=== PATIENT | female | born 1955 | race Two or more races ===

== ENCOUNTER 2017-05-19 08:00 | Inpatient (IN) | payer MEDICARE, OTHER ==
[2017-05-19] VITALS (12 sets, daily range): BP systolic 128–180; BP diastolic 65–90
[~2017-05-19] VITALS: Ht 157.5 cm; Wt 59.0 kg
--- NOTE | 2017-05-19 07:31 | Anethesia Preoperative Eval ---
Anesthesia Pre-op PMH/ROS General Date of Evaluation: May 19, 2017 Time of Evaluation: 07:30 Anesthesiologist: inocencio ASA Score: ASA 3 Mallampati Score Class I : Soft palate, uvula, fauces, pillars visible Class II: Soft palate, uvula, fauces visible Class III: Soft palate, base of uvula visible Class IV: Only hard plate visible Mallampati Classification: Class II Surgeon: nnamdi Diagnosis: right renal mass Surgical Procedure: nephrectomy, laparoscopic partial v radical Anesthesia History: none Social History: smoking Family History: no anesthesia problems Allergies: Coded Allergies: CIPROFLOXACIN (Verified Allergy, Severe, SWELLING, 05/18/17) LEVOFLOXACIN (Verified Allergy, Severe, 05/19/17) PERIPHERAL NEUROPATHY PSEUDOEPHEDRINE (Verified Allergy, Severe, SWELLING, RASH, SKIN PEELING, 05/19/17) Uncoded Allergies: camtrax (Allergy, Intermediate, rash , 05/19/17) Medications: see eMAR Past Medical History Cardiovascular: Reports: HTN Pulmonary: Reports: COPD Gastrointestinal/Genitourinary: Reports: GERD, other - gib PSxH Narrative: jeet, bladder suspension, d&c, lap band placement and removal Anesthesia Pre-op Phys. Exam Physician Exam Last Vital Signs Date Time Temp Pulse Resp B/P (MAP) Pulse Ox O2 Delivery O2 Flow Rate FiO2 05/19/17 08:43 97.7 61 16 159/89 99 Room Air Constitutional: NAD Neurologic: CN 2-12 intact Cardiovascular: RRR Respiratory: CTA Gastrointestinal: S/NT/ND Airway Exam Mallampati Score: Class II MO: full Neck: supple TMD: 2fb ROM: full Anesthesia Pre-op A/P Labs see chart Studies Pre-op Studies: EKG - sinus rhythm, CXR - no acute process, stable left lung nodule Risk Assessment & Plan Assessment: asa3 Plan: general Status Change Before Surgery: No Pre-Antibiotics Drug: ancef 1gm Given Within 1 Hr of Incision: Yes DIANA SMYTH May 19, 2017 07:31
[2017-05-19] MEDS ORDERED: LISINOPRIL10 MG ORAL (08:57)
[2017-05-19] MEDS ORDERED: TRAMADOL HCL100 M2 ORAL (08:57)
[2017-05-19] MEDS ORDERED: MYRBETRIQ25 MG PO (08:57)
--- NOTE | 2017-05-19 10:10 | Pre-Procedure Note/Attestation ---
Pre-Procedure Note/Attestation Complete Prior to Procedure Planned Procedure: right Procedure Narrative: Right Laparoscopic Radical vs partial Nephrectomy Indications for Procedure Pre-Operative Diagnosis: right renal mass Attestation I attest that I discussed the nature of the procedure; its benefits; risks and complications; and alternatives (and the risks and benefits of such alternatives ), prior to the procedure, with the patient (or the patient's legal sales representatives). I attest that, if there was a reasonable possibility of needing a blood transfusion, the patient (or the patient's legal sales representatives) was given the [facility] standardized written summary, pursuant to the [place] Blood Safety Act ([place] Health and Safety Code # 1645, as amended). I attest that I re-evaluated the patient just prior to the surgery and that there has been no change in the patient's H&P, except as documented below: Pierre Archer MD May 19, 2017 10:10
[2017-05-19] MEDS ORDERED: Neostigmine 1mg/ml 10ml Inj ONE (10:30)
[2017-05-19] MEDS ORDERED: LR 1000ml ONE (10:30)
[2017-05-19] MEDS ORDERED: fentaNYL 100 mcg/2 mL IV ONE ×2 (10:30→12:21)
[2017-05-19] MEDS ORDERED: Sterile Water Irrig 1000ml IRRIG ONE (10:30)
[2017-05-19] MEDS ORDERED: NS Irrig 1000ml ONE (10:30)
[2017-05-19] MEDS ORDERED: Propofol 200mg/20ml IV ONE (10:30)
[2017-05-19] MEDS ORDERED: Lidocaine 1% MPF 10mg/ml 5ml ONE (10:30)
[2017-05-19] MEDS ORDERED: Glycopyrrolate 0.2mg/ml 1ml Vial ONE (10:30)
[2017-05-19] MEDS ORDERED: Midazolam 2mg/2ml Inj ONE (10:30)
[2017-05-19] MEDS ORDERED: Bupivacaine 0.5% Inj 30 ml vial INJ ONE (10:35)
[2017-05-19] MEDS ORDERED: Lacri-Lube Opth Oint 3.5gm ONE (10:35)
[2017-05-19] MEDS ORDERED: NS Irrig 1000ml IRRIG ONE (11:07)
[2017-05-19] MEDS ORDERED: Surgicel 4in x 8in TOPIC ONE (11:33)
--- NOTE | 2017-05-19 11:53 | Brief Operative Note ---
Immediate Post Operative Note Operative Note Pre-op Diagnosis: right renal mass Procedure: Laparoscopic partial nephrectomy right Post-op Diagnosis: same Surgeon: Jean Marie Archer Process Area Supervisor: Caleb Mayes Anesthesia: general Specimen: yes Complications: none Condition: stable Fluids: 500 Estimated Blood Loss: minimal Implant(s) used?: No Pierre Archer MD May 19, 2017 11:53
[2017-05-19] MEDS ORDERED: HYDROmorphone 1mg/ml Carpuject IVP PRN (12:00)
[2017-05-19] MEDS ORDERED: LR 1000ml 1,000 ML IVLG SCH (12:17)
[2017-05-19] MEDS: fentaNYL 100 mcg/2 mL IV PRN ×4 (12:27→13:26)
[2017-05-19] MEDS ORDERED: DiphenhydrAMINE 50mg/ml Inj IVP PRN (12:30)
[2017-05-19] MEDS ORDERED: Atropine Inj 1mg/10ml Syr IV PRN (12:30)
[2017-05-19] MEDS ORDERED: Midazolam 2mg/2ml Inj IVP PRN (12:30)
[2017-05-19 12:55] LABS: MEAN CORPUSCULAR HEMOGLOBIN 25.9 PG (27.0-31.0); MEAN CORPUSCULAR HGB CONC 31.4 G/DL (32.0-36.0); MEAN CORPUSCULAR VOLUME 83 FL (80-99); MEAN PLATELET VOLUME 7.5 FL (6.5-10.1); PLATELET COUNT 447 K/UL (150-450); RED BLOOD COUNT 5.14 M/UL (4.20-5.40); RED CELL DISTRIBUTION WIDTH 14.4 % (11.6-14.8); WHITE BLOOD COUNT 20.8 K/UL (4.8-10.8)
[2017-05-19 13:09] LABS: ANION GAP 5 mmol/L (5-15); BAND NEUTROPHILS % (MANUAL) 0 % (0-8); BASOPHILS % (MANUAL) 0 % (0-2); CALCIUM 8.6 MG/DL (8.5-10.1); CARBON DIOXIDE 28 MMOL/L (21-32); CHLORIDE 106 MMOL/L (98-107); CREATININE 0.7 MG/DL (0.55-1.30); EOSINOPHILS % (MANUAL) 2 % (0-3); GLOMERULAR FILTRATION RATE > 60 mL/min (>60); LYMPHOCYTES % (MANUAL) 18 % (20-45); NEUTROPHILS % (MANUAL) 75 % (45-75); PLATELET ESTIMATE ADEQUATE; PLATELET MORPHOLOGY NORMAL; POTASSIUM 4.7 MMOL/L (3.5-5.1); SODIUM 139 MMOL/L (136-145); TOTAL CELLS COUNTED 100
--- NOTE | 2017-05-19 13:14 | Immediate Post-Op Evaluation ---
Immediate Post-Op Evalulation Immediate Post-Op Evalulation Procedure: removal right renal mass laparoscopic Date of Evaluation: May 19, 2017 Time of Evaluation: 12:14 IV Fluids: 1500ml lr Blood Products: none Estimated Blood Loss: negligible Urinary Output: 300ml Blood Pressure Systolic: 155 Blood Pressure Diastolic: 73 Pulse Rate: 54 Respiratory Rate: 20 O2 Sat by Pulse Oximetry: 100 Temperature (Fahrenheit): 97.4 Pain Score (1-10): 0 Nausea: No Vomiting: No Complications none Patient Status: awake, reacts, patent, extubated Hydration Status: adequate Drug: ancef 1 gram Given Within 1 Hr of Incision: Yes DIANA SMYTH May 19, 2017 13:14
[2017-05-19] MEDS: D5 1/2NS w/KCl 20mEq 1,000 ML IV SCH (15:10)
[2017-05-19] MEDS: Hydromorphone 0.5mg/0.5ml inj IVP PRN (15:11)
--- NOTE | 2017-05-19 15:13 | History and Physical ---
History of Present Illness General Date patient seen: May 19, 2017 Present Illness HPI 52 year old female with hx of HTN, gastric lap band, depression, renal cell cancer admitted for nephrectomy. pt is admitted to floor for post op care. Allergies: Coded Allergies: CIPROFLOXACIN (Verified Allergy, Severe, SWELLING, 05/18/17) LEVOFLOXACIN (Verified Allergy, Severe, 05/19/17) PERIPHERAL NEUROPATHY PSEUDOEPHEDRINE (Verified Allergy, Severe, SWELLING, RASH, SKIN PEELING, 05/19/17) Uncoded Allergies: camtrax (Allergy, Intermediate, rash , 05/19/17) Medication History Scheduled Lisinopril* (Lisinopril*), 10 MG ORAL DAILY, (Reported) Mirabegron (Myrbetriq), 25 MG PO DAILY, (Reported) Scheduled PRN Tramadol Hcl (Tramadol Hcl), 50 MG ORAL TID PRN for For Pain, (Reported) Patient History Healthcare decision maker SELF Resuscitation status Full Code Advanced Directive on File Past Medical/Surgical History Past Medical/Surgical History: (1) Depression Review of Systems All Other Systems: negative except mentioned in HPI Physical Exam General Appearance: WD/WN, no apparent distress Lines, tubes and drains: peripheral, central line HEENT: normocephalic, anicteric Neck: non-tender, normal alignment Respiratory/Chest: chest wall non-tender, normal breath sounds Breasts: no masses Cardiovascular/Chest: normal rate, regular rhythm Last 24 Hour Vital Signs Date Time Temp Pulse Resp B/P (MAP) Pulse Ox O2 Delivery O2 Flow Rate FiO2 05/19/17 13:32 70 20 153/73 98 Nasal Cannula 3.0 05/19/17 13:27 97.4 05/19/17 13:26 65 20 156/85 98 Nasal Cannula 3.0 05/19/17 13:19 180/90 05/19/17 13:15 62 20 180/90 98 Nasal Cannula 3.0 05/19/17 13:14 54 20 100 05/19/17 13:00 60 20 168/82 98 Nasal Cannula 3.0 05/19/17 12:44 51 20 162/68 98 Nasal Cannula 3.0 05/19/17 12:27 52 20 155/65 98 Simple Mask 8.0 05/19/17 12:12 52 20 155/65 98 Simple Mask 8.0 05/19/17 12:07 54 20 146/72 98 Simple Mask 8.0 05/19/17 12:02 97.4 56 20 155/73 98 Simple Mask 8.0 05/19/17 08:43 97.7 61 16 159/89 99 Room Air Intake and Output 05/19/17 05/20/17 19:00 07:00 Intake Total 800 ml Output Total 300 ml Balance 500 ml Intake IV Total 800 ml Output Urine Total 300 ml # Voids 1 Laboratory Tests Test 05/19/17 12:30 White Blood Count 20.8 K/UL (4.8-10.8) H Red Blood Count 5.14 M/UL (4.20-5.40) Hemoglobin 13.3 G/DL (12.0-16.0) Hematocrit 42.5 % (37.0-47.0) Mean Corpuscular Volume 83 FL (80-99) Mean Corpuscular Hemoglobin 25.9 PG (27.0-31.0) L Mean Corpuscular Hemoglobin Concent 31.4 G/DL (32.0-36.0) L Red Cell Distribution Width 14.4 % (11.6-14.8) Platelet Count 447 K/UL (150-450) Mean Platelet Volume 7.5 FL (6.5-10.1) Neutrophils (%) (Auto) % (45.0-75.0) Lymphocytes (%) (Auto) % (20.0-45.0) Monocytes (%) (Auto) % (1.0-10.0) Eosinophils (%) (Auto) % (0.0-3.0) Basophils (%) (Auto) % (0.0-2.0) Differential Total Cells Counted 100 Neutrophils % (Manual) 75 % (45-75) Lymphocytes % (Manual) 18 % (20-45) L Monocytes % (Manual) 5 % (1-10) Eosinophils % (Manual) 2 % (0-3) Basophils % (Manual) 0 % (0-2) Band Neutrophils 0 % (0-8) Platelet Estimate Adequate Platelet Morphology Normal Red Blood Cell Morphology Normal Sodium Level 139 MMOL/L (136-145) Potassium Level 4.7 MMOL/L (3.5-5.1) Chloride Level 106 MMOL/L (98-107) Carbon Dioxide Level 28 MMOL/L (21-32) Anion Gap 5 mmol/L (5-15) Blood Urea Nitrogen 17 mg/dL (7-18) Creatinine 0.7 MG/DL (0.55-1.30) Estimat Glomerular Filtration Rate > 60 mL/min (>60) Glucose Level 101 MG/DL (74-106) Calcium Level 8.6 MG/DL (8.5-10.1) Height (Feet): 5 Height (Inches): 2.00 Weight (Pounds): 130 Medications Current Medications Medications (Trade) Dose Ordered Sig/Sunny Route PRN Reason Start Time Stop Time Status Last Admin Dose Admin Acetaminophen (Tylenol) 650 mg Q4H PRN ORAL FEVER 05/19/17 12:00 06/18/17 11:59 Acetaminophen (Tylenol) 650 mg Q6H PRN ORAL Mild Pain (Pain Scale 1-3) 05/19/17 12:00 06/18/17 11:59 Acetaminophen/ Hydrocodone Bitart ([place] 5/325) 1 tab Q4H PRN ORAL Moderate Pain (Pain Scale 4-6) 05/19/17 12:00 05/26/17 11:59 Al Hydroxide/Mg Hydroxide (Mylanta) 15 ml Q1H PRN ORAL gi upset 05/19/17 12:30 05/19/17 18:00 Atropine Sulfate (Atropine) 0.5 mg Q5M PRN IV BRADYCARDIA 05/19/17 12:30 05/19/17 18:00 Cefazolin Sodium 1 gm/Dextrose 55 ml @ 110 mls/hr Q8H IV 05/19/17 15:30 05/19/17 23:59 Dextrose/ Electrolytes 1,000 ml @ 100 mls/hr Q10H IV 05/19/17 15:00 06/18/17 14:59 Diphenhydramine HCl (Benadryl) 25 mg Q15M PRN IVP Itching 05/19/17 12:30 05/19/17 18:00 05/19/17 13:03 Docusate Sodium (Colace) 100 mg TWICE A DAY ORAL 05/19/17 18:00 06/18/17 17:59 Fentanyl Citrate (Sublimaze 100 mcg/2 mL) 25 mcg Q10M PRN IV Moderate Pain (Pain Scale 4-6) 05/19/17 12:30 05/19/17 18:00 05/19/17 13:26 Hydralazine HCl (Apresoline) 5 mg Q30M PRN IV SBP>160/DBP>90 05/19/17 12:30 05/19/17 18:00 05/19/17 13:19 Hydromorphone HCl (Dilaudid) 1 mg Q3H PRN IVP pain score 4-6 05/19/17 15:00 05/26/17 14:59 Lactated Ringer's 1,000 ml @ 10 mls/hr Q24H IVLG 05/19/17 12:17 05/19/17 18:00 Midazolam HCl (Versed 2mg/2ml vial) 1 mg Q15M PRN IVP For Anxiety 05/19/17 12:30 05/19/17 18:00 Ondansetron HCl (Zofran) 4 mg Q1H PRN IVP Nausea & Vomiting 05/19/17 12:30 05/19/17 16:00 Ondansetron HCl (Zofran) 4 mg Q6H PRN IVP Nausea & Vomiting 05/19/17 12:00 06/18/17 11:59 Assessment/Plan Problem List: (1) S/p nephrectomy ICD Codes: Z90.5 - Acquired absence of kidney SNOMED: 83268333, 782832560 (2) Depression ICD Codes: F32.9 - Major depressive disorder, single episode, unspecified SNOMED: 26331808 (3) Leukocytosis ICD Codes: D72.829 - Elevated white blood cell count, unspecified SNOMED: 504091684, 771492540 Assessment/Plan npo iv fluids check electrolytes check wbc VIKASH WOODALL May 19, 2017 15:13
[2017-05-19] MEDS: ceFAZolin sod 1 GM in D5W 55 ML IV SCH ×2 (15:58→23:34)
--- NOTE | 2017-05-19 17:30 | Operative Note - Dictated ---
DATE OF OPERATION: 05/19/2017 PREOPERATIVE DIAGNOSIS: Right renal mass. POSTOPERATIVE DIAGNOSIS: Right renal mass. OPERATION: Laparoscopic partial nephrectomy on the right side. SURGEON: Pierre Archer M.D. BILLING SERVICES MANAGER: Caleb Mayes M.D. FINDINGS: Right renal mass. INDICATIONS FOR SURGERY: The patient incidental right renal mass found on CT scan in September. Treatment options were explained to her in great length including all potential complications. She signed a consent. DESCRIPTION OF PROCEDURE: The patient was brought to the operating room, placed in right lateral decubitus position, prepped and draped in standard fashion. Under general anesthesia, hand port was placed at the McBurney point, incision approximately 7 cm and two additional 12 mm trocars in the standard position. Dr. Mayes started surgery with mobilizing multiple adhesions from previous Lap-Band surgery mobilizing the liver after he completed his procedure. Gerota fascia was opened and tumor was seen on the lateral surface of the right kidney. Circular incision with electrocautery was made approximately 1 cm margins from the tumor and tumor was resected for pathologic examination. Using FloSeal and Surgicel, bleeding stopped and normal recurrent bleeding occurred including electrocautery. was placed in normal position as well as the was repositioned back into the normal position. The trocars were removed. Sponge and all the instruments were removed from the patient. Sponge count and instrument count was correct. Wound was closed in a running layer with 0 Vicryl suture for the external oblique aponeurosis and then the subcuticular closure for the skin and kam. The patient tolerated procedure well. No evidence of complications. Pierre Archer M.D. DR: Leigh Ann JOB#: [id number] CC:
[2017-05-19] MEDS: Docusate 100mg cap ORAL SCH (18:00)
[2017-05-19] MEDS: Norco 5mg/325mg tab ORAL PRN (20:30)
[2017-05-20] VITALS: BP 104/72
[2017-05-20] MEDS: D5 1/2NS w/KCl 20mEq 1,000 ML IV SCH ×3 (01:20→21:00)
[2017-05-20 04:00] VITALS: BP 141/74
--- NOTE | 2017-05-20 05:00 | Operative Note - Dictated ---
OPERATING SURGEON: Caleb Mayes M.D. DRY CELL AND BATTERY ASSEMBLER: Pierre Archre M.D. ANESTHESIA: General endotracheal. PREOPERATIVE DIAGNOSIS: Renal cancer. POSTOPERATIVE DIAGNOSIS: 1. Right renal cancer. 2. Intraabdominal adhesions, status post laparoscopic adjustable gastric banding. PROCEDURE PERFORMED: Laparoscopic lysis of adhesions. BACKGROUND: The patient is a 61-year-old female with a right renal mass, most probably renal cell carcinoma. He was taken to operating room for laparoscopic hand-assisted right nephrectomy. The patient had a history of laparoscopic adjustable gastric banding for morbid obesity with subsequent band removal, and given the above-mentioned history, I was requested by Dr. Pierre Archer to assist in entering the abdominal cavity to avoid injury to internal organs since my primary speciality is bariatric surgery. INTRAOPERATIVE FINDINGS: Adhesions in the right upper quadrant from the previous surgeries. PROCEDURE IN DETAIL: The patient was placed in a left lateral decubitus position. The abdomen was prepped and draped in the usual sterile fashion. The procedure was started by making an incision in the right lower quadrant through the skin in a standard oblique fashion. The muscle was bluntly split and the abdomen was entered and hand port healthcare administrative assistant device was placed. After that, two additional ports 10 mm Optiview trocars were placed in the right abdomen. After that, using a 30-degree scope and scissors, electrocautery was needed, the adhesions in the omentum and throughout the abdominal wall were taken down taking care to avoid injury to small bowel. The adhesions covered the entire right upper quadrant which precluded safe access to the right kidney. After the omentum was dissected off the anterior abdominal wall, the hepatic flexure was mobilized and taken down to facilitate access to the right kidney. After that, the procedure was taken over by Dr. Pierre Archer and he will dictate his report separately. Caleb Mayes M.D. DR: Fauzia JOB#: [id number] CC: ALE
[2017-05-20] MEDS: Norco 5mg/325mg tab ORAL PRN ×3 (05:20→21:15)
[2017-05-20 07:57] LABS: BASOPHILS % (AUTO) 0.5 % (0.0-2.0); LYMPHOCYTES % (AUTO) 14.4 % (20.0-45.0); MAGNESIUM 2.1 MG/DL (1.8-2.4); MEAN CORPUSCULAR HEMOGLOBIN 25.6 PG (27.0-31.0); MEAN CORPUSCULAR HGB CONC 31.3 G/DL (32.0-36.0); MEAN CORPUSCULAR VOLUME 82 FL (80-99); MEAN PLATELET VOLUME 7.7 FL (6.5-10.1); MONOCYTES % (AUTO) 8.7 % (1.0-10.0); NEUTROPHILS % (AUTO) 72.4 % (45.0-75.0); PHOSPHORUS 3.5 MG/DL (2.5-4.9); PLATELET COUNT 378 K/UL (150-450); RED BLOOD COUNT 4.76 M/UL (4.20-5.40); RED CELL DISTRIBUTION WIDTH 14.4 % (11.6-14.8); WHITE BLOOD COUNT 10.7 K/UL (4.8-10.8)
[2017-05-20 08:01] LABS: ALANINE AMINOTRANSFERASE 12 U/L (12-78); ALBUMIN/GLOBULIN RATIO 0.7 (1.0-2.7); ANION GAP 7 mmol/L (5-15); ASPARTATE AMINO TRANSFERASE 16 U/L (15-37); CALCIUM 8.2 MG/DL (8.5-10.1); CARBON DIOXIDE 28 MMOL/L (21-32); CHLORIDE 106 MMOL/L (98-107); CREATININE 0.7 MG/DL (0.55-1.30); GLOMERULAR FILTRATION RATE > 60 mL/min (>60); POTASSIUM 4.3 MMOL/L (3.5-5.1); SODIUM 140 MMOL/L (136-145); TOTAL PROTEIN 5.9 G/DL (6.4-8.2)
[2017-05-20] MEDS: Docusate 100mg cap ORAL SCH ×2 (09:00→18:00)
[2017-05-20 09:09] VITALS: BP 148/73
[2017-05-20] MEDS: Lisinopril 10mg tab ORAL SCH (09:09)
[2017-05-20] MEDS: Hydromorphone 0.5mg/0.5ml inj IVP PRN (11:24)
[2017-05-20 11:54] VITALS: BP 107/61
--- NOTE | 2017-05-20 12:36 | 48 Hour Post Anesthesia Eval ---
Post Anesthesia Evaluation Procedure: removal right renal mass laparoscopic Date of Evaluation: May 20, 2017 Time of Evaluation: 10:20 Blood Pressure Systolic: 108 0: 65 Pulse Rate: 76 Respiratory Rate: 20 Temperature (Fahrenheit): 97.6 O2 Sat by Pulse Oximetry: 98 Airway: patent Nausea: No Vomiting: No Hydration Status: adequate Cardiopulmonary Status: stable Mental Status/LOC: patient returned to baseline Follow-up Care/Observations: n/a Post-Anesthesia Complications: none Follow-up care needed: N/A GERALD VALADEZ M.D. May 20, 2017 12:36
--- NOTE | 2017-05-20 14:41 | Pulmonology Progress Note ---
Assessment/Plan Problems: (1) S/p nephrectomy (2) Depression (3) Leukocytosis Assessment/Plan improving pain is better controlled advance diet mobilize dc home in am if ok with Surgeon Subjective ROS Limited/Unobtainable: No Constitutional: Reports: no symptoms HEENT: Repors: no symptoms Respiratory: Reports: no symptoms Allergies: Coded Allergies: CIPROFLOXACIN (Verified Allergy, Severe, SWELLING, 05/18/17) LEVOFLOXACIN (Verified Allergy, Severe, 05/19/17) PERIPHERAL NEUROPATHY PSEUDOEPHEDRINE (Verified Allergy, Severe, SWELLING, RASH, SKIN PEELING, 05/19/17) Uncoded Allergies: camtrax (Allergy, Intermediate, rash , 05/19/17) Objective Last 24 Hour Vital Signs Date Time Temp Pulse Resp B/P (MAP) Pulse Ox O2 Delivery O2 Flow Rate FiO2 05/20/17 12:36 76 20 98 05/20/17 11:54 98.2 67 19 107/61 94 05/20/17 09:09 148/73 05/20/17 09:09 97.9 79 20 148/73 94 05/20/17 04:00 98.4 69 18 141/74 95 Room Air 05/20/17 00:00 97.6 72 16 104/72 98 Nasal Cannula 3.0 05/19/17 20:00 97.5 78 16 129/74 98 Nasal Cannula 3.0 05/19/17 16:00 97.8 78 18 128/67 100 Nasal Cannula General Appearance: WD/WN HEENT: normocephalic, atraumatic Respiratory/Chest: chest wall non-tender, lungs clear Abdomen: normal bowel sounds, soft, non tender Genitourinary: normal external genitalia Extremities: no clubbing Skin: no lesions Laboratory Tests 05/20/17 07:00: White Blood Count 10.7, Red Blood Count 4.76, Hemoglobin 12.2, Hematocrit 38.8, Mean Corpuscular Volume 82, Mean Corpuscular Hemoglobin 25.6L, Mean Corpuscular Hemoglobin Concent 31.3L, Red Cell Distribution Width 14.4, Platelet Count 378, Mean Platelet Volume 7.7, Neutrophils (%) (Auto) 72.4, Lymphocytes (%) (Auto) 14.4L, Monocytes (%) (Auto) 8.7, Eosinophils (%) (Auto) 4.0H, Basophils (%) ( Auto) 0.5, Sodium Level 140, Potassium Level 4.3, Chloride Level 106, Carbon Dioxide Level 28, Anion Gap 7, Blood Urea Nitrogen 12, Creatinine 0.7, Estimat Glomerular Filtration Rate > 60, Glucose Level 97, Calcium Level 8.2L, Phosphorus Level 3.5, Magnesium Level 2.1, Total Bilirubin 0.5, Aspartate Amino Transf (AST/SGOT) 16, Alanine Aminotransferase (ALT/SGPT) 12, Alkaline Phosphatase 107, Total Protein 5.9L, Albumin 2.5L, Globulin 3.4, Albumin/ Globulin Ratio 0.7L Current Medications Medications (Trade) Dose Ordered Sig/Sunny Route PRN Reason Start Time Stop Time Status Last Admin Dose Admin Acetaminophen (Tylenol) 650 mg Q4H PRN ORAL FEVER 05/19/17 12:00 06/18/17 11:59 Acetaminophen (Tylenol) 650 mg Q6H PRN ORAL Mild Pain (Pain Scale 1-3) 05/19/17 12:00 06/18/17 11:59 Acetaminophen/ Hydrocodone Bitart ([place] 5/325) 1 tab Q4H PRN ORAL Moderate Pain (Pain Scale 4-6) 05/19/17 12:00 05/26/17 11:59 05/20/17 05:20 Dextrose/ Electrolytes 1,000 ml @ 100 mls/hr Q10H IV 05/19/17 15:00 06/18/17 14:59 05/20/17 11:24 Docusate Sodium (Colace) 100 mg TWICE A DAY ORAL 05/19/17 18:00 06/18/17 17:59 Hydromorphone HCl (Dilaudid) 1 mg Q3H PRN IVP pain score 4-6 05/19/17 15:00 05/26/17 14:59 05/20/17 11:24 Lisinopril (Zestril) 10 mg DAILY ORAL 05/20/17 09:00 06/19/17 08:59 05/20/17 09:09 Ondansetron HCl (Zofran) 4 mg Q6H PRN IVP Nausea & Vomiting 05/19/17 12:00 06/18/17 11:59 VIKASH WOODALL May 20, 2017 14:41
[2017-05-20 15:56] VITALS: BP 119/67
[2017-05-20 20:31] VITALS: BP 130/81
[2017-05-21 00:42] VITALS: BP 112/63
[2017-05-21] MEDS: Norco 5mg/325mg tab ORAL PRN ×4 (01:52→22:25)
[2017-05-21 04:00] VITALS: BP 121/70
--- NOTE | 2017-05-21 07:34 | Pulmonology Progress Note ---
Assessment/Plan Assessment/Plan ASSESSMENT R renal mas s/p laparoscopic partial R nephrectomy leukocytosis-resolved HTN likely protein calorie malnutrition homeless PLAN OF CARE [place] floor leukocytosis resolved, afebrile voiding without difficulties pain management diet advanced as tolerated -tolerates encourage OOB as tolerated , ambulates with walker BP management with SUSIE Bowel regimen SS eval re placement dietary evla dc plan case discussed and evaluated by supervising physician Subjective Allergies: Coded Allergies: CIPROFLOXACIN (Verified Allergy, Severe, SWELLING, 05/18/17) LEVOFLOXACIN (Verified Allergy, Severe, 05/19/17) PERIPHERAL NEUROPATHY PSEUDOEPHEDRINE (Verified Allergy, Severe, SWELLING, RASH, SKIN PEELING, 05/19/17) ACETAMINOPHEN (Verified Allergy, Unknown, rash, 05/21/17) CHLORPHENIRAMINE (Verified Allergy, Unknown, rash, 05/21/17) PHENYLEPHRINE (Verified Allergy, Unknown, rash, 05/21/17) Uncoded Allergies: camtrax (Allergy, Intermediate, rash , 05/19/17) Subjective voiding, no blood no discomfort with voiding pain intermittent at incision side ambulates Objective Last 24 Hour Vital Signs Date Time Temp Pulse Resp B/P (MAP) Pulse Ox O2 Delivery O2 Flow Rate FiO2 05/21/17 04:00 Room Air 05/21/17 04:00 98.5 69 18 121/70 94 05/21/17 00:42 98.3 68 19 112/63 94 05/21/17 00:00 Room Air 05/20/17 20:31 98.5 70 18 130/81 94 05/20/17 20:00 Room Air 05/20/17 15:56 98.3 67 20 119/67 96 05/20/17 12:36 76 20 98 05/20/17 11:54 98.2 67 19 107/61 94 05/20/17 09:09 148/73 05/20/17 09:09 97.9 79 20 148/73 94 General Appearance: no acute distress HEENT: normocephalic, atraumatic, anicteric, mucous membranes moist Respiratory/Chest: lungs clear, no respiratory distress, no accessory muscle use Cardiovascular: normal peripheral pulses, normal rate, regular rhythm, no JVD Abdomen: normal bowel sounds, soft, non tender Skin: other - laparascopic inciisions with small dressings, C/D/I Neurologic/Psychiatric: abnormal gait - with walker , alert, oriented x 3, responsive Musculoskeletal: normal muscle bulk Current Medications Medications (Trade) Dose Ordered Sig/Sunny Route PRN Reason Start Time Stop Time Status Last Admin Dose Admin Acetaminophen (Tylenol) 650 mg Q4H PRN ORAL FEVER 05/19/17 12:00 06/18/17 11:59 Acetaminophen (Tylenol) 650 mg Q6H PRN ORAL Mild Pain (Pain Scale 1-3) 05/19/17 12:00 06/18/17 11:59 Acetaminophen/ Hydrocodone Bitart ([place] 5/325) 1 tab Q4H PRN ORAL Moderate Pain (Pain Scale 4-6) 05/19/17 12:00 05/26/17 11:59 05/21/17 01:52 Docusate Sodium (Colace) 100 mg TWICE A DAY ORAL 05/19/17 18:00 06/18/17 17:59 Hydromorphone HCl (Dilaudid) 1 mg Q3H PRN IVP pain score 4-6 05/19/17 15:00 05/26/17 14:59 05/20/17 11:24 Lisinopril (Zestril) 10 mg DAILY ORAL 05/20/17 09:00 06/19/17 08:59 05/20/17 09:09 Ondansetron HCl (Zofran) 4 mg Q6H PRN IVP Nausea & Vomiting 05/19/17 12:00 06/18/17 11:59 Anitra Alvarenga NP ([place]) May 21, 2017 07:34
[2017-05-21 08:00] VITALS: BP 142/75
[2017-05-21] MEDS: Docusate 100mg cap ORAL SCH ×2 (08:11→18:00)
[2017-05-21] MEDS: Lisinopril 10mg tab ORAL SCH (08:15)
[2017-05-21 12:00] VITALS: BP 128/74
[2017-05-21] MEDS: Albuterol/Ipratropium 3ml neb HHN PRN (14:24)
[2017-05-21 16:00] VITALS: BP 140/79
[2017-05-21] MEDS: guaiFENesin 100mg/5ml Liq ud ORAL PRN (17:19)
[2017-05-21 20:19] VITALS: BP 150/87
[2017-05-22 00:11] VITALS: BP 144/75
[2017-05-22 04:00] VITALS: BP 124/51
[2017-05-22] MEDS: guaiFENesin 100mg/5ml Liq ud ORAL PRN (04:46)
[2017-05-22 08:00] VITALS: BP 131/75
[2017-05-22 08:06] LABS: BASOPHILS % (AUTO) 0.6 % (0.0-2.0); EOSINOPHILS % (AUTO) 7.2 % (0.0-3.0); LYMPHOCYTES % (AUTO) 25.4 % (20.0-45.0); MEAN CORPUSCULAR HEMOGLOBIN 25.7 PG (27.0-31.0); MEAN CORPUSCULAR HGB CONC 31.4 G/DL (32.0-36.0); MEAN CORPUSCULAR VOLUME 82 FL (80-99); MONOCYTES % (AUTO) 10.7 % (1.0-10.0); NEUTROPHILS % (AUTO) 56.2 % (45.0-75.0); PLATELET COUNT 365 K/UL (150-450); RED BLOOD COUNT 4.06 M/UL (4.20-5.40); RED CELL DISTRIBUTION WIDTH 14.4 % (11.6-14.8); WHITE BLOOD COUNT 7.5 K/UL (4.8-10.8)
[2017-05-22 08:22] LABS: ANION GAP 5 mmol/L (5-15); CALCIUM 8.6 MG/DL (8.5-10.1); CARBON DIOXIDE 31 MMOL/L (21-32); CHLORIDE 106 MMOL/L (98-107); CREATININE 0.7 MG/DL (0.55-1.30); GLOMERULAR FILTRATION RATE > 60 mL/min (>60); POTASSIUM 4.1 MMOL/L (3.5-5.1); SODIUM 142 MMOL/L (136-145)
[2017-05-22] MEDS: Lisinopril 10mg tab ORAL SCH (08:40)
[2017-05-22] MEDS: Albuterol/Ipratropium 3ml neb HHN PRN (08:40)
[2017-05-22] MEDS: Docusate 100mg cap ORAL SCH (08:41)
[2017-05-22] MEDS: Norco 5mg/325mg tab ORAL PRN (08:47)
--- NOTE | 2017-05-22 09:43 | Pulmonology Progress Note ---
Assessment/Plan Assessment/Plan ASSESSMENT R renal mas s/p laparoscopic partial R nephrectomy leukocytosis-resolved HTN likely protein calorie malnutrition homeless PLAN OF CARE MS floor leukocytosis resolved, afebrile voiding without difficulties pain management diet advanced as tolerated -tolerates encourage OOB as tolerated , ambulates with walker BP management with SUSIE Bowel regimen SS eval re placement dietary evla dc today to SNF when placement secured case discussed and evaluated by supervising physician Subjective Allergies: Coded Allergies: CIPROFLOXACIN (Verified Allergy, Severe, SWELLING, 05/18/17) LEVOFLOXACIN (Verified Allergy, Severe, 05/19/17) PERIPHERAL NEUROPATHY PSEUDOEPHEDRINE (Verified Allergy, Severe, SWELLING, RASH, SKIN PEELING, 05/19/17) ACETAMINOPHEN (Verified Allergy, Unknown, rash, 05/21/17) CHLORPHENIRAMINE (Verified Allergy, Unknown, rash, 05/21/17) PHENYLEPHRINE (Verified Allergy, Unknown, rash, 05/21/17) Uncoded Allergies: camtrax (Allergy, Intermediate, rash , 05/19/17) Subjective voiding, no blood no discomfort with voiding pain intermittent at incision side , controlled with analgesics ambulates with walker Objective Last 24 Hour Vital Signs Date Time Temp Pulse Resp B/P (MAP) Pulse Ox O2 Delivery O2 Flow Rate FiO2 05/22/17 08:49 88 18 99 Room Air 05/22/17 08:46 21 05/22/17 08:40 131/82 05/22/17 08:39 82 20 96 Room Air 05/22/17 08:37 82 20 Room Air 05/22/17 08:00 98.3 82 20 131/75 97 Room Air 05/22/17 04:00 Room Air 05/22/17 04:00 98.4 57 18 124/51 94 05/22/17 00:11 98.4 75 20 144/75 97 05/22/17 00:10 Room Air 05/21/17 20:19 98.6 80 19 150/87 96 05/21/17 20:19 Room Air 05/21/17 20:17 80 18 Room Air 21 05/21/17 16:00 97.8 84 20 140/79 100 Room Air 05/21/17 14:48 87 18 100 Room Air 21 05/21/17 14:45 21 05/21/17 14:44 84 18 99 Room Air 05/21/17 14:41 84 18 Room Air 21 05/21/17 12:00 98.0 69 20 128/74 95 Room Air Intake and Output 05/22/17 05/23/17 19:00 07:00 Intake Total 240 ml Balance 240 ml Intake Oral 240 ml # Voids 1 Objective General Appearance: no acute distress HEENT: normocephalic, atraumatic, anicteric, mucous membranes moist Respiratory/Chest: lungs clear, no respiratory distress, no accessory muscle use Cardiovascular: normal peripheral pulses, normal rate, regular rhythm, no JVD Abdomen: normal bowel sounds, soft, non tender Skin: other - laparascopic inciisions with small dressings, C/D/I Neurologic/Psychiatric: abnormal gait - with walker , alert, oriented x 3, responsive Musculoskeletal: normal muscle bulk Laboratory Tests 05/22/17 05:55: White Blood Count 7.5, Red Blood Count 4.06L, Hemoglobin 10.4L, Hematocrit 33.2L , Mean Corpuscular Volume 82, Mean Corpuscular Hemoglobin 25.7L, Mean Corpuscular Hemoglobin Concent 31.4L, Red Cell Distribution Width 14.4, Platelet Count 365, Mean Platelet Volume 7.0, Neutrophils (%) (Auto) 56.2, Lymphocytes (%) (Auto) 25.4, Monocytes (%) (Auto) 10.7H, Eosinophils (%) (Auto) 7.2H, Basophils (%) (Auto) 0.6, Sodium Level 142, Potassium Level 4.1, Chloride Level 106, Carbon Dioxide Level 31, Anion Gap 5, Blood Urea Nitrogen 14, Creatinine 0.7, Estimat Glomerular Filtration Rate > 60, Glucose Level 80, Calcium Level 8.6 Current Medications Medications (Trade) Dose Ordered Sig/Sunny Route PRN Reason Start Time Stop Time Status Last Admin Dose Admin Acetaminophen (Tylenol) 650 mg Q4H PRN ORAL FEVER 05/19/17 12:00 06/18/17 11:59 Acetaminophen (Tylenol) 650 mg Q6H PRN ORAL Mild Pain (Pain Scale 1-3) 05/19/17 12:00 06/18/17 11:59 Acetaminophen/ Hydrocodone Bitart ([place] 5/325) 1 tab Q4H PRN ORAL Moderate Pain (Pain Scale 4-6) 05/19/17 12:00 05/26/17 11:59 05/22/17 08:47 Albuterol/ Ipratropium (Albuterol/ Ipratropium) 3 ml Q4H PRN HHN SOB/COUGH 05/21/17 14:00 05/26/17 13:59 05/22/17 08:40 Docusate Sodium (Colace) 100 mg TWICE A DAY ORAL 05/19/17 18:00 06/18/17 17:59 05/22/17 08:41 Guaifenesin (Robitussin) 100 mg Q4H PRN ORAL For Cough 05/21/17 13:00 06/20/17 12:59 05/22/17 04:46 Lisinopril (Zestril) 10 mg DAILY ORAL 05/20/17 09:00 06/19/17 08:59 05/22/17 08:40 Ondansetron HCl (Zofran) 4 mg Q6H PRN IVP Nausea & Vomiting 05/19/17 12:00 06/18/17 11:59 Lyle HayesAnitra martines NP May 22, 2017 09:43
[2017-05-22] MEDS ORDERED: NORCO 5-325 TA1 EACH ORAL (09:46)
[2017-05-22] MEDS ORDERED: COLACE100 MG ORAL (09:46)
[2017-05-22 12:34] VITALS: BP 129/76
--- NOTE | 2017-05-25 07:56 | Discharge Summary ---
Discharge Summary Hospital Course Date of Admission May 19, 2017 at 08:00 Date of Discharge May 22, 2017 at 13:10 Admitting Diagnosis CLARE Jovel is a 61 year old female who was admitted on May 19, 2017 at 08:00 for Rt Renal Mass Procedures dc summary #[id number] Discharge Medications New Medications: Docusate Sodium* (Colace*) 100 Mg Capsule 100 MG ORAL TWICE A DAY, #60 CAP hold for losse stool/diarrhea Hydrocodone Bit/Acetaminophen 5-325* ([place] 5-325*) 1 Each Tablet 1 TAB ORAL Q4H PRN, #20 TAB severe pain Continued Medications: Lisinopril* (Lisinopril*) 10 Mg Tablet 10 MG ORAL DAILY, TAB Mirabegron (Myrbetriq) 25 Mg Tab.er.24h 25 MG PO DAILY, TAB Tramadol Hcl (Tramadol Hcl) 100 Mg Tab.er.24h 50 MG ORAL TID PRN for For Pain, TAB Discharge Condition Upon Discharge: stable Discharge Disposition Patient was discharged to SNF/Subacute Facility(03) Discharge Diagnoses: Lyle (Real)Anitra NP May 25, 2017 07:56
--- NOTE | 2017-05-25 20:47 | Discharge Summary 2 SIG ---
DATE OF ADMISSION: 05/19/2017 DATE OF DISCHARGE: 05/22/2017 REASON FOR ADMISSION: 61 years old female with history of hypertension, gastric lap band, depression, and renal mass, was admitted for nephrectomy. The patient subsequently undergone laparoscopic partial right nephrectomy and was admitted to Med/Surg floor for further management. HOSPITAL COURSE: The patient was initially with leukocytosis. Pain management was provided. Diet was slowly advanced as tolerated. The patient was able to void without difficulties. No hematuria. No urinary retention. The patient was able to ambulate with a walker. Blood pressure was managed with SUSIE inhibitor and was stable. Bowel regimen was instituted. Leukocytosis resolved. The patient had evidence of muscle wasting and low albumin. Dietary supplement was added. The patient had no place to stay. [facility], however, at present ambulated with a walker and needs snf care at least for a short time after surgery. animal husbandry worker assistance was requested. Placement was found at the snf facility. Leukocytosis initially present resolved. Afebrile. Vital signs stable. The patient was stable for discharge to snf facility for continuation of care. FINAL DIAGNOSES: 1. Right renal mass 2. Status post laparoscopic partial right nephrectomy. 3. Leukocytosis, resolved. 4. Hypertension. 5. Homeless. 6. Likely protein-calorie malnutrition. DISCHARGE MEDICATIONS: See medication reconciliation list. DISCHARGE INSTRUCTIONS: The patient was discharged to snf facility. FOLLOWUP: Follow up with medical doctor at the facility. Pierre Archer M.D. Anitra Hayessouthern ocean medical centerFrancisco N.PChuck MEDRANO: PUSHPA JOB#: [id number] CC: ALE
== END 2017-05-22 13:10 | DRG 657 ==
LOC: SDSOVERFLO 08:00 → 3E 13:59
PROC: 0DNU4ZZ Release Omentum, Percutaneous Endoscopic Approach (ICD-10-PCS; principal; 2017-05-19 10:45)
PROC: 0TB04ZZ Excision of Right Kidney, Percutaneous Endoscopic Approach (ICD-10-PCS; principal; 2017-05-19 10:45)
DX: C64.1 Malignant neoplasm of right kidney, except renal pelvis (principal); E46 Unspecified protein-calorie malnutrition; F32.9 Major depressive disorder, single episode, unspecified; D72.829 Elevated white blood cell count, unspecified; K66.0 Peritoneal adhesions (postprocedural) (postinfection); Z68.23 Body mass index [BMI] 23.0-23.9, adult; Z88.8 Allergy status to other drugs, medicaments and biological substances; Z88.6 Allergy status to analgesic agent; Z88.1 Allergy status to other antibiotic agents; Z98.84 Bariatric surgery status; Z59.0 Homelessness
CPT/HCPCS: 36415; 80048; 80053; 83735; 84100; 85007; 85025; 86850; 86900; 86901; 87081; 94003; 94150; 94640; 94664; J2250; J2710; J7620

== ENCOUNTER 2017-06-03 00:18 | Observation (INO) | payer MEDICARE, OTHER ==
[~2017-06-03] VITALS: Ht 160 cm; Wt 68.9 kg
[~2017-06-03 00:18] MED LIST: COLACE100 MG ORAL; LISINOPRIL10 MG ORAL; MYRBETRIQ25 MG PO; NORCO 5-325 TA1 EACH ORAL; TRAMADOL HCL100 M2 ORAL
[2017-06-03] MEDS ORDERED: EPINEPHrine 1mg/1ml Amp IM ONE ×2 (00:45→02:15)
[2017-06-03] MEDS ORDERED: Solu-MEDROL 125mg Inj IVP ONE (00:45)
[2017-06-03 01:23] LABS: BASOPHILS % (AUTO) 0.7 % (0.0-2.0); EOSINOPHILS % (AUTO) 1.7 % (0.0-3.0); LYMPHOCYTES % (AUTO) 18.2 % (20.0-45.0); MEAN CORPUSCULAR HGB CONC 32.4 G/DL (32.0-36.0); MEAN CORPUSCULAR VOLUME 83 FL (80-99); MEAN PLATELET VOLUME 6.9 FL (6.5-10.1); MONOCYTES % (AUTO) 4.3 % (1.0-10.0); NEUTROPHILS % (AUTO) 75.1 % (45.0-75.0); PLATELET COUNT 353 K/UL (150-450); RED BLOOD COUNT 4.37 M/UL (4.20-5.40); RED CELL DISTRIBUTION WIDTH 17.1 % (11.6-14.8); WHITE BLOOD COUNT 10.8 K/UL (4.8-10.8)
[2017-06-03 01:37] LABS: ANION GAP 6 mmol/L (5-15); CALCIUM 8.7 MG/DL (8.5-10.1); CARBON DIOXIDE 28 MMOL/L (21-32); CHLORIDE 104 MMOL/L (98-107); CREATININE 0.8 MG/DL (0.55-1.30); GLOMERULAR FILTRATION RATE > 60 mL/min (>60); POTASSIUM 4.9 MMOL/L (3.5-5.1); SODIUM 138 MMOL/L (136-145)
[2017-06-03] MEDS ORDERED: TYLENOL650 MG/20. ORAL ×2 (01:37)
[2017-06-03] MEDS ORDERED: ZOFRAN 4 MG4 MG/2 ML IV (01:37)
[2017-06-03] MEDS ORDERED: COLACE100 MG ORAL (01:37)
[2017-06-03 01:40] LABS: ALANINE AMINOTRANSFERASE 28 U/L (12-78); ALBUMIN/GLOBULIN RATIO 0.8 (1.0-2.7); ASPARTATE AMINO TRANSFERASE 33 U/L (15-37)
[2017-06-03] MEDS ORDERED: PREDNISONE20 MG ORAL (01:48)
--- NOTE | 2017-06-03 02:06 | Emergency Room Report ---
History of Present Illness General Chief Complaint: Allergic Reaction Source: Patient, Medical Record, EMS Present Illness HPI 61-year-old female, coming from [facility], presenting with allergic reaction. Patient states that the [facility] gave her vitamin C, she proceeded to have diffuse urticarial itchy rash, on her arms her stomach and her back. States that she got 50 mg of Benadryl by their [facility] which has not helped. Denies any respiratory distress however states that this morning her lip and her neck became swollen. Again denies any shortness of breath. No nausea vomiting or diarrhea. Reports one episode of loose stool. No history of anaphylaxis in the past Allergies: Coded Allergies: CIPROFLOXACIN (Verified Allergy, Severe, SWELLING, 05/18/17) LEVOFLOXACIN (Verified Allergy, Severe, 05/19/17) PERIPHERAL NEUROPATHY PSEUDOEPHEDRINE (Verified Allergy, Severe, SWELLING, RASH, SKIN PEELING, 05/19/17) ACETAMINOPHEN (Verified Allergy, Unknown, rash, 05/21/17) CHLORPHENIRAMINE (Verified Allergy, Unknown, rash, 05/21/17) PHENYLEPHRINE (Verified Allergy, Unknown, rash, 05/21/17) Uncoded Allergies: camtrax (Allergy, Intermediate, rash , 05/19/17) Patient History Past Medical History: see triage record Past Surgical History: none Pertinent Family History: none Last Menstrual Period: na Reviewed Nursing Documentation: PMH: Agreed, PSxH: Agreed Nursing Documentation-PMH Hx Cardiac Problems: Yes Hx Hypertension: Yes Hx Cancer: Yes Hx Gastrointestinal Problems: Yes Hx Neurological Problems: Yes Hx Cerebrovascular Accident: Yes Review of Systems All Other Systems: negative except mentioned in HPI Physical Exam Vital Signs Date Time Temp Pulse Resp B/P (MAP) Pulse Ox O2 Delivery O2 Flow Rate FiO2 06/03/17 00:21 97.9 90 18 148/76 100 Room Air Sp02 EP Interpretation: reviewed, normal General Appearance: alert, GCS 15, non-toxic, mild distress Head: normocephalic, atraumatic Eyes: bilateral eye normal inspection, bilateral eye PERRL, bilateral eye EOMI ENT: normal voice, moist mucus membranes, other - Bottom lip with edema, under mandible again with some edema and swelling, nontender, no tongue elevation, no stridor, no tonsillar enlargement or uvula enlargement, tongue is not swollen Neck: supple, other - Right underneath the chin with edema, nontender Respiratory: normal inspection, lungs clear, normal breath sounds, no respiratory distress, no retraction, no wheezing, speaking full sentences, chest symmetrical Cardiovascular #1: normal inspection, regular rate, rhythm, normal capillary refill Cardiovascular #2: 2+ radial (R), 2+ radial (L) Gastrointestinal: normal inspection, non tender, soft, non-distended, no guarding Musculoskeletal: normal inspection, back normal, normal range of motion, non- tender Neurologic: normal inspection, alert, oriented x3, responsive, motor strength/ tone normal, sensory intact, normal gait, speech normal Psychiatric: normal inspection, judgement/insight normal, memory normal Skin: warm/dry, well hydrated, normal turgor, other - Urticarial irritated rash noted on arms, abdomen, back, blanching, nontender Medical Decision Making Diagnostic Impression: Primary Impression: Allergic reaction ER Course 61-year-old female with allergic reaction Differential diagnosis Allergic reaction likely secondary to ? Vitamin C Does not meet anaphylaxis criteria at this time Plan: pepcid, steroids Possible epi ER course: Pt given meds with only mild resolution of symptoms, still states that she feels that rash is getting worse, continues not to have any shortness of breath but states that she generally does not feel well, did not feel well enough to go home Will admit Disposition: Patient admitted to telemetry floor Discussed with hospitalist Dr Crawley Please note that this Emergency Department Report was dictated using [employer] learning officer technology software, occasionally this can lead to erroneous entry secondary to interpretation by the dictation equipment. EKG Diagnostic Results EP Interpretation: Yes Rate: normal Rhythm: NSR ST Segments: No acute changes ASA given to patient: No Rhythm Strip EP Interpretation: Yes Rate: 70 Rhythm: NSR, no PVCs, no ectopy Laboratory Tests Test 06/03/17 01:00 White Blood Count 10.8 K/UL (4.8-10.8) Red Blood Count 4.37 M/UL (4.20-5.40) Hemoglobin 11.8 G/DL (12.0-16.0) L Hematocrit 36.5 % (37.0-47.0) L Mean Corpuscular Volume 83 FL (80-99) Mean Corpuscular Hemoglobin 27.0 PG (27.0-31.0) Mean Corpuscular Hemoglobin Concent 32.4 G/DL (32.0-36.0) Red Cell Distribution Width 17.1 % (11.6-14.8) H Platelet Count 353 K/UL (150-450) Mean Platelet Volume 6.9 FL (6.5-10.1) Neutrophils (%) (Auto) 75.1 % (45.0-75.0) H Lymphocytes (%) (Auto) 18.2 % (20.0-45.0) L Monocytes (%) (Auto) 4.3 % (1.0-10.0) Eosinophils (%) (Auto) 1.7 % (0.0-3.0) Basophils (%) (Auto) 0.7 % (0.0-2.0) Sodium Level 138 MMOL/L (136-145) Potassium Level 4.9 MMOL/L (3.5-5.1) Chloride Level 104 MMOL/L (98-107) Carbon Dioxide Level 28 MMOL/L (21-32) Anion Gap 6 mmol/L (5-15) Blood Urea Nitrogen 24 mg/dL (7-18) H Creatinine 0.8 MG/DL (0.55-1.30) Estimate Glomerular Filtration Rate > 60 mL/min (>60) Glucose Level 103 MG/DL (74-106) Calcium Level 8.7 MG/DL (8.5-10.1) Total Bilirubin 0.3 MG/DL (0.2-1.0) Aspartate Amino Transferase (AST) 33 U/L (15-37) Alanine Aminotransferase (ALT) 28 U/L (12-78) Alkaline Phosphatase 139 U/L (46-116) H Total Protein 7.0 G/DL (6.4-8.2) Albumin 3.2 G/DL (3.4-5.0) L Globulin 3.8 g/dL Albumin/Globulin Ratio 0.8 (1.0-2.7) L Last Vital Signs Date Time Temp Pulse Resp B/P (MAP) Pulse Ox O2 Delivery O2 Flow Rate FiO2 06/03/17 00:21 97.9 90 18 148/76 100 Room Air Disposition: ADMITTED INPATIENT Condition: Serious Scripts Prednisone* (PREDNISONE*) 20 Mg Tablet 40 MG ORAL DAILY for 5 Days, #10 TAB 0 Refills Prov: Sally Colby M.D. 06/03/17 Patient Instructions: Hives, Gkcr-ls-Beay Retino,Clairose M.D. Jun 03, 2017 02:06
[2017-06-03 03:48] VITALS: BP 142/76
[2017-06-03] MEDS ORDERED: Morphine Sulfate 2mg/ml Inj IVP PRN (07:00)
[2017-06-03] MEDS ORDERED: Mylanta II UD 30ml ORAL PRN (07:00)
[2017-06-03] MEDS ORDERED: Miralax 17gm pkt ORAL PRN (07:00)
[2017-06-03] MEDS ORDERED: Zolpidem 5mg tab ORAL PRN (07:00)
[2017-06-03] MEDS ORDERED: LORazepam Inj 2mg/ml 1ml IV PRN (07:00)
[2017-06-03 08:00] VITALS: BP 143/90
--- NOTE | 2017-06-03 11:52 | History and Physical ---
History of Present Illness General Date patient seen: Jun 03, 2017 Reason for Hospitalization: Allergic Reaction Present Illness HPI 61-year-old female with hx of HTN, renal cell cancer, s/p nephrectomy, coming from retirement, presenting with allergic reaction. she took some vitamin C, she proceeded to have diffuse urticarial itchy rash, on her arms her stomach and her back. Denies any respiratory distress however states that this morning her lip and her neck became swollen. she is admitted to telemetry for further evaluation. Allergies: Coded Allergies: CIPROFLOXACIN (Verified Allergy, Severe, SWELLING, 05/18/17) LEVOFLOXACIN (Verified Allergy, Severe, 05/19/17) PERIPHERAL NEUROPATHY PSEUDOEPHEDRINE (Verified Allergy, Severe, SWELLING, RASH, SKIN PEELING, 05/19/17) ACETAMINOPHEN (Verified Allergy, Unknown, rash, 05/21/17) CHLORPHENIRAMINE (Verified Allergy, Unknown, rash, 05/21/17) PHENYLEPHRINE (Verified Allergy, Unknown, rash, 05/21/17) Uncoded Allergies: camtrax (Allergy, Intermediate, rash , 05/19/17) Medication History Scheduled Docusate Sodium* (Colace*), 100 MG ORAL TWICE A DAY Docusate Sodium* (Colace*), 100 MG ORAL DAILY, (Reported) Lisinopril* (Lisinopril*), 10 MG ORAL DAILY, (Reported) Mirabegron (Myrbetriq), 25 MG PO DAILY, (Reported) Prednisone* (Prednisone*), 40 MG ORAL DAILY Scheduled PRN Acetaminophen (Acetaminophen), 650 MG ORAL Q6H PRN for For Pain, (Reported) Acetaminophen (Acetaminophen), 650 MG ORAL Q4HR PRN for fever, (Reported) Hydrocodone Bit/Acetaminophen 5-325* ([place] 5-325*), 1 TAB ORAL Q4H PRN Ondansetron* (Zofran*), 4 MG IV Q6H PRN for Nausea & Vomiting, (Reported) Tramadol Hcl (Tramadol Hcl), 50 MG ORAL TID PRN for For Pain, (Reported) Patient History Healthcare decision maker Resuscitation status Full Code Advanced Directive on File No Past Medical/Surgical History Past Medical/Surgical History: (1) renal cancer (2) Depression (3) S/p nephrectomy Review of Systems Constitutional: Reports: no symptoms Neurological: Reports: no symptoms Endocrine: Reports: no symptoms Hematologic/Lymphatic: Reports: no symptoms Physical Exam General Appearance: WD/WN Lines, tubes and drains: peripheral, central line HEENT: normocephalic, atraumatic Neck: non-tender, normal alignment, supple Respiratory/Chest: chest wall non-tender, normal breath sounds Breasts: no masses Cardiovascular/Chest: normal peripheral pulses Abdomen: normal bowel sounds, hyperactive bowel sounds Extremities: normal range of motion Last 24 Hour Vital Signs Date Time Temp Pulse Resp B/P (MAP) Pulse Ox O2 Delivery O2 Flow Rate FiO2 06/03/17 08:00 96.3 86 19 143/90 94 06/03/17 03:52 97.9 85 16 142/76 100 Room Air 06/03/17 03:48 97.9 85 16 142/76 100 Room Air 06/03/17 00:21 97.9 90 18 148/76 100 Room Air Intake and Output 06/03/17 06/04/17 19:00 07:00 Intake Total 260 ml Balance 260 ml Intake Oral 260 ml Laboratory Tests Test 06/03/17 01:00 White Blood Count 10.8 K/UL (4.8-10.8) Red Blood Count 4.37 M/UL (4.20-5.40) Hemoglobin 11.8 G/DL (12.0-16.0) L Hematocrit 36.5 % (37.0-47.0) L Mean Corpuscular Volume 83 FL (80-99) Mean Corpuscular Hemoglobin 27.0 PG (27.0-31.0) Mean Corpuscular Hemoglobin Concent 32.4 G/DL (32.0-36.0) Red Cell Distribution Width 17.1 % (11.6-14.8) H Platelet Count 353 K/UL (150-450) Mean Platelet Volume 6.9 FL (6.5-10.1) Neutrophils (%) (Auto) 75.1 % (45.0-75.0) H Lymphocytes (%) (Auto) 18.2 % (20.0-45.0) L Monocytes (%) (Auto) 4.3 % (1.0-10.0) Eosinophils (%) (Auto) 1.7 % (0.0-3.0) Basophils (%) (Auto) 0.7 % (0.0-2.0) Sodium Level 138 MMOL/L (136-145) Potassium Level 4.9 MMOL/L (3.5-5.1) Chloride Level 104 MMOL/L (98-107) Carbon Dioxide Level 28 MMOL/L (21-32) Anion Gap 6 mmol/L (5-15) Blood Urea Nitrogen 24 mg/dL (7-18) H Creatinine 0.8 MG/DL (0.55-1.30) Estimat Glomerular Filtration Rate > 60 mL/min (>60) Glucose Level 103 MG/DL (74-106) Calcium Level 8.7 MG/DL (8.5-10.1) Total Bilirubin 0.3 MG/DL (0.2-1.0) Aspartate Amino Transf (AST/SGOT) 33 U/L (15-37) Alanine Aminotransferase (ALT/SGPT) 28 U/L (12-78) Alkaline Phosphatase 139 U/L (46-116) H Total Protein 7.0 G/DL (6.4-8.2) Albumin 3.2 G/DL (3.4-5.0) L Globulin 3.8 g/dL Albumin/Globulin Ratio 0.8 (1.0-2.7) L Height (Feet): 5 Height (Inches): 3.00 Weight (Pounds): 152 Medications Current Medications Medications (Trade) Dose Ordered Sig/Sunny Route PRN Reason Start Time Stop Time Status Last Admin Dose Admin Al Hydroxide/Mg Hydroxide (Mylanta II) 30 ml Q6H PRN ORAL dyspepsia 06/03/17 07:00 07/03/17 06:59 Dextrose (Dextrose 50%) STAT PRN IV Hypoglycemia 06/03/17 07:00 07/03/17 06:59 Lorazepam (Ativan 2mg/ml 1ml) 0.5 mg Q4H PRN IV For Anxiety 06/03/17 07:00 06/10/17 06:59 Morphine Sulfate (Morphine Sulfate) 1 mg Q4H PRN IVP For Pain 06/03/17 07:00 06/10/17 06:59 Ondansetron HCl (Zofran) 4 mg Q6H PRN IVP Nausea & Vomiting 06/03/17 07:00 07/03/17 06:59 Polyethylene Glycol (Miralax) 17 gm HSPRN PRN ORAL Constipation 06/03/17 07:00 1/13/18 06:59 Zolpidem Tartrate (Ambien) 5 mg HSPRN PRN ORAL Insomnia 06/03/17 07:00 06/10/17 06:59 Assessment/Plan Problem List: (1) Allergic reaction caused by a drug ICD Codes: T78.40XA - Allergy, unspecified, initial encounter SNOMED: 018543501 (2) Depression ICD Codes: F32.9 - Major depressive disorder, single episode, unspecified SNOMED: 33991765 (3) S/p nephrectomy ICD Codes: Z90.5 - Acquired absence of kidney SNOMED: 31892200, 684178296 (4) renal cancer Assessment/Plan symptomatic treatment improving continue current meds dc to retirement VIKASH WOODALL Jun 03, 2017 11:52
[2017-06-03 11:59] VITALS: BP 144/87
--- NOTE | 2017-06-03 12:36 | Neurology Progress Note ---
Objective Physical Exam Last Vital Signs Date Time Temp Pulse Resp B/P (MAP) Pulse Ox O2 Delivery O2 Flow Rate FiO2 06/03/17 11:59 97.0 89 19 144/87 95 06/03/17 03:52 Room Air Laboratory Tests Test 06/03/17 01:00 White Blood Count 10.8 K/UL (4.8-10.8) Red Blood Count 4.37 M/UL (4.20-5.40) Hemoglobin 11.8 G/DL (12.0-16.0) L Hematocrit 36.5 % (37.0-47.0) L Mean Corpuscular Volume 83 FL (80-99) Mean Corpuscular Hemoglobin 27.0 PG (27.0-31.0) Mean Corpuscular Hemoglobin Concent 32.4 G/DL (32.0-36.0) Red Cell Distribution Width 17.1 % (11.6-14.8) H Platelet Count 353 K/UL (150-450) Mean Platelet Volume 6.9 FL (6.5-10.1) Neutrophils (%) (Auto) 75.1 % (45.0-75.0) H Lymphocytes (%) (Auto) 18.2 % (20.0-45.0) L Monocytes (%) (Auto) 4.3 % (1.0-10.0) Eosinophils (%) (Auto) 1.7 % (0.0-3.0) Basophils (%) (Auto) 0.7 % (0.0-2.0) Sodium Level 138 MMOL/L (136-145) Potassium Level 4.9 MMOL/L (3.5-5.1) Chloride Level 104 MMOL/L (98-107) Carbon Dioxide Level 28 MMOL/L (21-32) Anion Gap 6 mmol/L (5-15) Blood Urea Nitrogen 24 mg/dL (7-18) H Creatinine 0.8 MG/DL (0.55-1.30) Estimat Glomerular Filtration Rate > 60 mL/min (>60) Glucose Level 103 MG/DL (74-106) Calcium Level 8.7 MG/DL (8.5-10.1) Total Bilirubin 0.3 MG/DL (0.2-1.0) Aspartate Amino Transf (AST/SGOT) 33 U/L (15-37) Alanine Aminotransferase (ALT/SGPT) 28 U/L (12-78) Alkaline Phosphatase 139 U/L (46-116) H Total Protein 7.0 G/DL (6.4-8.2) Albumin 3.2 G/DL (3.4-5.0) L Globulin 3.8 g/dL Albumin/Globulin Ratio 0.8 (1.0-2.7) L Impression/Recommendations Recommendations #[id number] CRISTINA COOL Jun 03, 2017 12:36
[2017-06-03 16:58] VITALS: BP 167/93
[2017-06-03 20:10] VITALS: BP 152/90
[2017-06-03] MEDS ORDERED: D5NS 1000ml IV ONE (21:46)
--- NOTE | 2017-06-03 22:31 | Consultation ---
DATE OF CONSULTATION: 06/03/2017 NEUROLOGICAL CONSULTATION CONSULTING PHYSICIAN: Quirino Celestin M.D. REFERRING PHYSICIAN: Alvaro Crawley M.D. HISTORY OF PRESENT ILLNESS: This 61-year-old female seen in neurological consultation to evaluate the unstable gait, numbness in both feet, and lack of balance. The patient is brought to this hospital from a rehabilitation facility where she apparently developed acute allergic reaction, which she attributed to use of vitamin C in the setting of renal failure. She received 50 mg of Benadryl with no improvement. Given this, she was brought to this facility. Her vital signs on admission were stable. Blood pressure 142/76 and temperature 97.9. The patient was started on Pepcid and steroids to be observed. Her EKG, normal sinus rhythm. No PVC. No ectopies. Lab work, unremarkable CBC study and chemistry panel except alkaline phosphatase of 139, BUN of 24, and albumin 3.2. The patient informs me that she had been seen by psychiatrist who determined that she had multiple small strokes in the past affecting her gait and balance. In addition, she developed a what seems to be polyneuropathy. PAST MEDICAL HISTORY: The patient has a history of hypertension, depression, and had recently laparoscopic partial right nephrectomy revealing presence of malignancy. The patient has chronic gait abnormality with frequent falls. Recently, she was still homeless, at times was able to sleep at her mother's place, but usually on the street. She has a history of morbid obesity, but had a lap-band surgery. MEDICATIONS: Treatment prior to admission included [place], taken postoperatively; lisinopril; Myrbetriq; Zofran; prednisone; and tramadol for pain management. ALLERGIES: Acetaminophen, chlorpheniramine, Cipro, fluoxetine, phenylephrine, Sudafed, and Excedrin. FAMILY HISTORY: Noncontributory. SOCIAL HISTORY: Now in a rehabilitation facility. The patient has a daughter. She denies alcohol or drug abuse. Nonsmoker. REVIEW OF SYMPTOMS: Numbness and tingling in both feet, unsteady gait, lack of balance, postoperative pain and tenderness, but denies chest pain or palpitations. Denies respiratory problems. Has abdominal pain. No urine or bowel incontinence. PHYSICAL EXAMINATION: GENERAL: A well-developed, well-nourished female, not in acute distress, lying comfortably in bed. VITAL SIGNS: Stable. Blood pressure 144/87 and temperature 97.0. HEENT: Head, normocephalic. There is slight puffiness of perioral area and fading rash. NECK: Supple. No meningeal signs. MUSCULOSKELETAL EXAMINATION: Unremarkable. There are no deformities. Peripheral pulses 1+ and symmetric. MENTAL STATUS: She is alert and oriented x3 with no evidence of aphasia or apraxia. Cognitive function is reasonable. She is coherent and pleasant. CRANIAL NERVE II: Pupils are 2 mm, responding to light and accommodation. Extraocular movements intact. No nystagmus. CRANIAL NERVE V: Normal corneal responses. CRANIAL NERVE VII: No facial asymmetry. CRANIAL NERVE VIII: Normal hearing. CRANIAL NERVES IX THROUGH XII: Within normal limits. MOTOR EXAMINATION: Normal muscle tone and strength, 5/5 in all extremities. No involuntary movement. Deep tendon reflexes 1+ and symmetric with downgoing toes on both sides. SENSORY EXAM: Normal to pinprick and light touch. Reduced proprioception in both feet. COORDINATION: Clumsy [id number] and sdfi-xh-kcsq test bilaterally. GAIT: Somewhat unsteady and wide-based. IMPRESSION: 1. History of ischemic cerebrovascular disease with multiple lacunar strokes. 2. Gait abnormality. 3. 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 4. Drug allergy. 5. Hypertension. 6. History of depression. RECOMMENDATIONS: 1. PT, OT, and mobility protocol. 2. B12, folate, thyroid function, sedimentation rate, vitamin D, vitamin E levels. 3. Start on nutritional support. 4. Review of old records including recently obtained CAT scan of the brain. Thank you for allowing me to see this interesting patient in neurological consultation. Quirino Celestin M.D. DR: BÁRBARA JOB#: [id number] CC:
--- NOTE | 2017-06-04 10:29 | Discharge Summary ---
Discharge Summary Hospital Course Date of Admission Jun 03, 2017 at 03:23 Date of Discharge Jun 03, 2017 at 21:47 Admitting Diagnosis allergic reaction HPI Natty Michelle is a 61 year old female who was admitted on Jun 03, 2017 at 03:23 for Allergic Reaction Hospital Course [id number] Discharge Discharge Disposition Patient was discharged to SNF/Subacute Facility(03) Discharge Diagnoses: Jennifer Eaton NP Jun 04, 2017 10:29
--- NOTE | 2017-06-04 19:00 | Discharge Summary 2 SIG ---
DATE OF ADMISSION: 06/03/2017 DATE OF DISCHARGE: 06/03/2017 CONSULTANTS: Quirino Celestin M.D. BRIEF HOSPITAL COURSE: The patient is a 61-year-old female with hypertension and renal cell CA status post nephrectomy presented from intermediate due to an allergic reaction. She took vitamin C and noticed to have a diffuse urticarial and itchy rash on the arms, torso and back. Denied any respiratory distress. Her lips and neck became swollen. She was transferred to ED. She had no history of anaphylaxis in the past. She had a venous duplex of the lower extremity that was negative for acute DVT. She was admitted to telemetry under observation for evaluation of allergic reaction. She was seen by Dr. Celestin, as she had unstable gait, numbness in both feet and had lack of balance. She has history of ischemic cerebrovascular disease with multiple lacunar strokes and gait abnormality. She was given PT and OT mobility and nutritional support. She was given IV Solu-Medrol and a dose of epinephrine. Her vitals were stable. She was eventually discharged back to intermediate. FINAL DIAGNOSES: 1. Allergic reaction, possibly secondary to vitamin C. 2. Status post nephrectomy for renal carcinoma. 3. Old ischemic cerebrovascular disease with multiple lacunar strokes. 4. Gait abnormality. 5. 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 6. Hypertension. 7. Depression. DISPOSITION: The patient was discharged back to intermediate. DISCHARGE MEDICATIONS: Refer to medication list. Continue with prednisone 40 mg daily for five days. Alvaro Crawley M.D. I have been assigned to dictate discharge summary on this account and I was not involved in the patient's management. Jennifer Eaton N.P. DR: ALLAN JOB#: [id number] CC:
[2017-06-04] MEDS ORDERED: BENADRYL25 MG ORAL (19:02)
[2017-06-04] MEDS ORDERED: CALAMINE LOTIO177 ML TP (19:02)
[2017-06-04] MEDS ORDERED: IBUPROFEN600 MG ORAL (19:02)
[2017-06-04] MEDS ORDERED: IRON325 M1 PO (19:04)
[2017-06-04] MEDS ORDERED: PROTONIX40 MG ORAL (19:06)
[2017-06-04] MEDS ORDERED: PREDNISONE20 M1 PO (19:06)
[2017-06-04] MEDS ORDERED: PREDNISONE10 MG ORAL (19:06)
[2017-06-04] MEDS ORDERED: MIRALAX17 G2 ORAL (19:06)
--- NOTE | 2017-06-14 19:18 | Cardiology Report ---
APPROVED REPORT EKG Measurement Heart [id number] Normal sinus rhythm Normal ECG
--- NOTE | 2017-06-17 00:14 | Diagnostic Imaging Report ---
APPROVED REPORT CPT Code: 88902 Present Symptoms Lower Extremity Edema: Bilateral RIGHT LEG: Venous imaging reveals recanalized chronic thrombus in the superficial femoral vein. Large collateral vein noted anterior to the superficial femoral artery. The remainder of the deep venous system is within normal limits. There is no evidence of thrombus in the common femoral, popliteal or calf veins. The greater saphenous vein is also within normal limits. Doppler indicates normal spontaneous flow within these segments. LEFT LEG: Venous imaging reveals a patent deep venous system. There is no evidence of thrombus within the femoral, popliteal or tibial segments. The greater saphenous vein is also within normal limits. Doppler indicates normal spontaneous flow within these segments. There is no evidence of acute deep vein thrombosis.
== END 2017-06-03 21:47 ==
LOC: EDBD 00:18 → EMR 03:11 → INTOOBSV 03:23 → 2E 03:23 → EDBEDREQ 03:37
DX: T78.40XA Allergy, unspecified, initial encounter (principal); F32.9 Major depressive disorder, single episode, unspecified; Z90.5 Acquired absence of kidney; D49.519 Neoplasm of unspecified behavior of unspecified kidney; I10 Essential (primary) hypertension; R26.9 Unspecified abnormalities of gait and mobility; G62.9 Polyneuropathy, unspecified; Z91.81 History of falling; Z98.84 Bariatric surgery status; Z88.6 Allergy status to analgesic agent; Z79.52 Long term (current) use of systemic steroids; X58.XXXA Exposure to other specified factors, initial encounter; Z86.73 Personal history of transient ischemic attack (TIA), and cerebral infarction without residual deficits
CPT/HCPCS: 36415; 80053; 85025; 87081 ×2; 93005; 93970; 99285; G0378 ×2; J0171; J2930; S0028

== ENCOUNTER 2017-06-04 18:40 | Emergency (ER) | payer MEDICARE, OTHER ==
[~2017-06-04] VITALS: Ht 162.6 cm; Wt 66.7 kg
[~2017-06-04 18:40] MED LIST changes: +PREDNISONE20 MG ORAL; +TYLENOL650 MG/20. ORAL; +ZOFRAN 4 MG4 MG/2 ML IV
[2017-06-04] MEDS ORDERED: CALAMINE LOTIO177 ML TP (19:02)
[2017-06-04] MEDS ORDERED: BENADRYL25 MG ORAL (19:02)
[2017-06-04] MEDS ORDERED: IBUPROFEN600 MG ORAL (19:02)
[2017-06-04] MEDS ORDERED: IRON325 M1 PO (19:04)
[2017-06-04] MEDS ORDERED: PROTONIX40 MG ORAL (19:06)
[2017-06-04] MEDS ORDERED: PREDNISONE10 MG ORAL (19:06)
[2017-06-04] MEDS ORDERED: MIRALAX17 G2 ORAL (19:06)
[2017-06-04] MEDS ORDERED: PREDNISONE20 M1 PO (19:06)
[2017-06-04] MEDS: DiphenhydrAMINE 50mg/ml Inj IM ONE (19:12)
[2017-06-04 21:30] VITALS: BP 157/91
[2017-06-04 21:32] VITALS: BP 157/91
--- NOTE | 2017-06-04 22:48 | Emergency Room Report ---
History of Present Illness General Chief Complaint: Skin Rash/Abscess Source: Patient Present Illness HPI The patient is a 61-year-old female presenting for possible allergic reaction. She was evaluated and treated in this emergency Department yesterday for the same complaint. She states that she received a shot of vitamin C which may have started the reaction. She had lip swelling as well as total body hives. She received epinephrine and steroids and was admitted. She states that symptoms significantly improved and she was discharged back to her assisted- living facility today. She noticed hives on her chest and one to make sure this did not progress. She was given prescription for prednisone which she has been taking. She also took Benadryl earlier today. There is no pain. She does have itching. She denies other symptoms including F, Chills, SOB, CP, facial swelling, difficulty swallowing, abd pain, diarrhea Allergies: Coded Allergies: CIPROFLOXACIN (Verified Allergy, Severe, SWELLING, 05/18/17) LEVOFLOXACIN (Verified Allergy, Severe, 05/19/17) PERIPHERAL NEUROPATHY PSEUDOEPHEDRINE (Verified Allergy, Severe, SWELLING, RASH, SKIN PEELING, 05/19/17) ACETAMINOPHEN (Verified Allergy, Unknown, rash, 05/21/17) CHLORPHENIRAMINE (Verified Allergy, Unknown, rash, 05/21/17) PHENYLEPHRINE (Verified Allergy, Unknown, rash, 05/21/17) Uncoded Allergies: camtrax (Allergy, Intermediate, rash , 05/19/17) Patient History Past Medical History: see triage record Pertinent Family History: none Reviewed Nursing Documentation: PMH: Agreed, PSxH: Agreed Nursing Documentation-PMH Hx Cardiac Problems: Yes Hx Hypertension: Yes Hx Cancer: Yes Hx Gastrointestinal Problems: No Hx Neurological Problems: Yes Hx Cerebrovascular Accident: Yes - no residual Review of Systems All Other Systems: negative except mentioned in HPI Physical Exam Vital Signs Date Time Temp Pulse Resp B/P (MAP) Pulse Ox O2 Delivery O2 Flow Rate FiO2 06/04/17 18:34 97.5 94 16 142/80 97 Room Air Sp02 EP Interpretation: reviewed, normal General Appearance: no apparent distress, alert, GCS 15, non-toxic Head: normocephalic, atraumatic Eyes: bilateral eye PERRL, bilateral eye EOMI ENT: hearing grossly normal, normal pharynx, no angioedema, normal voice Neck: full range of motion, supple/symm/no masses Respiratory: chest non-tender, lungs clear, normal breath sounds, no wheezing, speaking full sentences Cardiovascular #1: regular rate, rhythm, no edema Gastrointestinal: normal bowel sounds, non tender, soft, non-distended, no guarding, no rebound Neurologic: alert, oriented x3, responsive, sensory intact Psychiatric: judgement/insight normal, memory normal, mood/affect normal, no suicidal/homicidal ideation Skin: rash - urticaria to chest Medical Decision Making PA Attestation Dr. Dickson is my supervising physician. Patient management was discussed with my supervising physician Diagnostic Impression: Primary Impression: Allergic reaction Qualified Codes: T78.40XA - Allergy, unspecified, initial encounter ER Course The patient is a 61-year-old female presenting for possible allergic reaction Differential diagnoses considered but not limited to: Anaphylaxis, allergic reaction, cellulitis, insect bites, among others PE: afebrile NAD HEENT exam unremarkable. No angioedema. Oropharynx is patent. Lungs clear to auscultation bilaterally RRR There is urticaria around the chest with excoriation markings. Otherwise exam unremarkable Patient is given IM Benadryl and will continue to take prescribed medications at her facility. She'll be discharged home and needs to be seen by her primary doctor. She is given precautions to return Last Vital Signs Date Time Temp Pulse Resp B/P (MAP) Pulse Ox O2 Delivery O2 Flow Rate FiO2 06/04/17 21:32 97.8 83 16 157/91 96 Room Air Status: improved Disposition: ASSISTED LIVING Condition: Improved Referrals: VIKASH WOODALL (PCP) Patient Instructions: Rash, Drug Allergy Additional Instructions: I discussed my findings with the patient. All questions and concerns have been answered. Treatment and medication compliance have been addressed. Return to EMERGENCY ROOM if symptoms worsen, new symptoms arise, you develop shortness of breath, facial swelling, or if needed for any reason. Patient verbalized understanding of discharge instructions. ALEX MICHELLE Jun 04, 2017 22:48
== END 2017-06-04 21:32 | disposition home or self-care (01) ==
LOC: EDBD 18:40 → EMR 19:48
DX: T78.40XA Allergy, unspecified, initial encounter (principal); X58.XXXA Exposure to other specified factors, initial encounter; R21 Rash and other nonspecific skin eruption; I10 Essential (primary) hypertension; Z86.73 Personal history of transient ischemic attack (TIA), and cerebral infarction without residual deficits; Z88.8 Allergy status to other drugs, medicaments and biological substances; Z88.1 Allergy status to other antibiotic agents; Z88.6 Allergy status to analgesic agent
CPT/HCPCS: 96372; 99283; J1200

== ENCOUNTER 2017-06-22 21:24 | Emergency (ER) | payer MEDICARE, OTHER ==
[~2017-06-22] VITALS: Ht 160 cm; Wt 68.0 kg
[~2017-06-22 21:24] MED LIST changes: +BENADRYL25 MG ORAL; +CALAMINE LOTIO177 ML TP; +IBUPROFEN600 MG ORAL; +IRON325 M1 PO; +MIRALAX17 G2 ORAL; +PREDNISONE10 MG ORAL; +PREDNISONE20 M1 PO; +PROTONIX40 MG ORAL
[2017-06-22 21:25] VITALS: BP 111/60
--- NOTE | 2017-06-22 21:56 | Emergency Room Report ---
History of Present Illness General Chief Complaint: Abnormal Labs Source: Patient Present Illness HPI This is a 61-year-old female with recent history of nephrectomy. She presents with chief complaint abnormal lab. Her CBC done on June 18 show white count of 17,000. At that time she had nausea and vomiting and coughing. Right now she has mild cough and some abdominal pain. No fever or chills. No nausea or vomiting anymore. No diarrhea. Her pain is over her incisional site. Denies any other complaint. Allergies: Coded Allergies: CIPROFLOXACIN (Verified Allergy, Severe, SWELLING, 05/18/17) LEVOFLOXACIN (Verified Allergy, Severe, 05/19/17) PERIPHERAL NEUROPATHY PSEUDOEPHEDRINE (Verified Allergy, Severe, SWELLING, RASH, SKIN PEELING, 05/19/17) ACETAMINOPHEN (Verified Allergy, Unknown, rash, 05/21/17) CHLORPHENIRAMINE (Verified Allergy, Unknown, rash, 05/21/17) PHENYLEPHRINE (Verified Allergy, Unknown, rash, 05/21/17) Uncoded Allergies: camtrax (Allergy, Intermediate, rash , 05/19/17) Patient History Past Medical History: see triage record, old chart reviewed Past Surgical History: other Pertinent Family History: none Social History: Denies: smoking Now: No Immunizations: other Reviewed Nursing Documentation: PMH: Agreed, PSxH: Agreed Nursing Documentation-PMH Hx Cardiac Problems: Yes Hx Hypertension: Yes Hx Cancer: Yes Hx Gastrointestinal Problems: No Hx Neurological Problems: Yes Hx Cerebrovascular Accident: Yes - no residual Review of Systems Eye: Denies: eye pain, blurred vision ENT: Denies: ear pain, nose congestion, throat swelling Respiratory: Reports: cough, Denies: shortness of breath Cardiovascular: Denies: chest pain, palpitations Gastrointestinal: Reports: abdominal pain, Denies: diarrhea, nausea, vomiting Musculoskeletal: Denies: back pain, joint pain Skin: Denies: rash Neurological: Denies: headache, numbness Endocrine: Denies: increased thirst, increased urine Hematologic/Lymphatic: Denies: easy bruising All Other Systems: negative except mentioned in HPI Physical Exam Vital Signs Date Time Temp Pulse Resp B/P (MAP) Pulse Ox O2 Delivery O2 Flow Rate FiO2 06/22/17 21:15 98.4 86 18 111/60 98 Room Air vitals normal Sp02 EP Interpretation: reviewed, normal General Appearance: well appearing, no apparent distress, alert Head: normocephalic, atraumatic Eyes: bilateral eye PERRL, bilateral eye EOMI ENT: hearing grossly normal, normal pharynx Neck: full range of motion, supple, no meningismus Respiratory: chest non-tender, lungs clear, normal breath sounds Cardiovascular #1: regular rate, rhythm, no murmur Gastrointestinal: normal bowel sounds, no mass, no organomegaly, no bruit, non- distended, tenderness - Mild tenderness of right lower quadrant. At site of incision Musculoskeletal: back normal, gait/station normal, normal range of motion Psychiatric: mood/affect normal Skin: warm/dry Procedures Additional Procedure Procedure Narrative Procedure: Needle aspiration Indication: Abdominal mass Description: Area clean with chlorhexidine. Local anesthetic 1% lidocaine without epinephrine. Using a 16-gauge needle I any aspirated the mass in the right lower anterior abdominal wall this inferior to the incisional site. Only fatty tissue and yellowish liquid aspirated. Patient tolerated procedure without a problem. No complication. Medical Decision Making Diagnostic Impression: Primary Impression: Abnormal laboratory test result Additional Impression: Seroma ER Course Patient with a leukocytosis or days ago. She probably had a viral illness causing his problem. She is asymptomatic now. She did say that she thought a mass in her incisional area for the last 2 to 3 weeks. I suspect this is a seroma. No evidence of any abscess. No redness or infection seen. We'll discharge home. Lab Results Impression labs unremarkable Chest X-Ray Diagnostic Results Chest X-Ray Diagnostic Results : Chest X-Ray Ordered: Yes # of Views/Limited/Complete: 1 View Indication: Shortness of Breath EP Interpretation: Yes Interpretation: no consolidation, no effusion, no pneumothorax, no acute cardiopulmonary disease Impression: No acute disease Electronically Signed by: Ney Escobar MD CT/MRI/US Diagnostic Results CT/MRI/US Diagnostic Results : Imaging Test Ordered: Abdomen and pelvis Impression Read by radiologist. Constipation. I put incision measuring 4.6 x 2 x 1.8 cm in the right lower anterior abdominal wall. Last Vital Signs Date Time Temp Pulse Resp B/P (MAP) Pulse Ox O2 Delivery O2 Flow Rate FiO2 06/22/17 21:15 98.4 86 18 111/60 98 Room Air Status: improved Disposition: HOME, SELF-CARE Condition: Stable Additional Instructions: Followup with your doctor as needed in 7 days. Return if symptom worsen. NEY ESCOBAR M.D. Jun 22, 2017 21:56
[2017-06-22 22:33] LABS: BASOPHILS % (AUTO) 1.2 % (0.0-2.0); HEMATOCRIT 41.4 % (37.0-47.0); HEMOGLOBIN 12.7 G/DL (12.0-16.0); LYMPHOCYTES % (AUTO) 27.9 % (20.0-45.0); MEAN CORPUSCULAR VOLUME 86 FL (80-99); MONOCYTES % (AUTO) 5.1 % (1.0-10.0); NEUTROPHILS % (AUTO) 58.8 % (45.0-75.0); PLATELET COUNT 340 K/UL (150-450); RED BLOOD COUNT 4.83 M/UL (4.20-5.40); RED CELL DISTRIBUTION WIDTH 18.1 % (11.6-14.8); WHITE BLOOD COUNT 12.7 K/UL (4.8-10.8)
[2017-06-22 22:35] LABS: BILIRUBIN, URINE NEGATIVE (NEGATIVE); COLOR,URINE PALE YELLOW; GLUCOSE, URINE (UA) NEGATIVE (NEGATIVE); KETONES,URINE NEGATIVE (NEGATIVE); LEUKOCYTE ESTERASE ,URINE 1+ (NEGATIVE); NITRITE,URINE NEGATIVE (NEGATIVE); PH,URINE 5 (4.5-8.0); PROTEIN,URINE NEGATIVE (NEGATIVE); UROBILINOGEN,URINE NORMAL MG/DL (0.0-1.0)
[2017-06-22 22:44] LABS: ANION GAP 5 mmol/L (5-15); BLOOD UREA NITROGEN 30 mg/dL (7-18); CALCIUM 7.5 MG/DL (8.5-10.1); CARBON DIOXIDE 30 MMOL/L (21-32); CHLORIDE 104 MMOL/L (98-107); CREATININE 0.9 MG/DL (0.55-1.30); POTASSIUM 3.9 MMOL/L (3.5-5.1); SODIUM 139 MMOL/L (136-145)
[2017-06-22 22:50] LABS: APPEARANCE,URINE CLEAR
[2017-06-22 23:25] VITALS: BP 125/78
[2017-06-23 00:17] VITALS: BP 131/71
--- NOTE | 2017-06-23 12:07 | Diagnostic Imaging Report ---
Indication: Shortness of breath Technique: One view of the chest Comparison: none Findings: No acute infiltrates, effusions, or congestion. Tortuous calcified aorta. Normal heart size. Upper mediastinum unremarkable. There is a small calcification in the left chest wall Impression: No acute process.
--- NOTE | 2017-06-23 12:07 | Diagnostic Imaging Report ---
Indication: Abdominal pain Technique: Spiral acquisitions obtained through the abdomen and pelvis. No oral contrast utilized, per emergency room physician request No IV contrast utilized, per referring physician request.. Multiplanar reconstructions were generated. Total dose length product 897 mGycm. CTDIvol(s) 18 mGy. Dose reduction achieved using automated exposure control Comparison: None Findings: Normal appendix. No evidence of diverticulosis or diverticulitis. No small bowel distention. No free or loculated peritoneal air or fluid is evident. Distal esophagus, stomach, duodenum are unremarkable. There is infiltration of the prepubic subcutaneous fat. There is a small associated fluid collection to the right of midline which measures 3.6 x 1 x 1.5 cm. Lack of IV contrast limits assessment of the solid organs. The liver is unremarkable. There is a calcification in the region of the gallbladder neck which could be within the gallbladder although this is difficult to state for certain. No biliary ductal dilatation. The pancreas is somewhat atrophic. The spleen demonstrates a calcification. The adrenals are unremarkable. There is questionably a small amount of perinephric fluid on the right adjacent to the lateral upper pole. The kidneys are otherwise unremarkable. No renal or ureteral calculi, hydronephrosis, or hydroureter. The uterus is not demonstrated, presumed surgically absent. The rectus abdominis musculature is atrophic. The included lung bases are clear. The bones demonstrate degenerative spondylosis changes. Impression: Infiltration of the previously subcutaneous fat, appearance suggestive of likely recent surgery. 3.6 x 1 x 1.5 cm associated fluid collection. This could represent a seroma, hematoma, or small abscess. Surgically absent uterus No other acute process Calcifications in the prem hepatis, gallstone versus arterial Small amount of perinephric fluid adjacent to the right kidney, could be a flattened cyst or recently ruptured cyst, among other possibilities This agrees with the preliminary interpretation provided overnight by [facility]. The CT scanner at [facility] is accredited by the [employer] and the scans are performed using protocols designed to limit radiation exposure to as low as reasonably achievable to attain images of sufficient resolution adequate for diagnostic evaluation.
== END 2017-06-23 00:17 | disposition home or self-care (01) ==
LOC: EDBD 21:24 → EMR 21:50
DX: R79.89 Other specified abnormal findings of blood chemistry (principal); R10.9 Unspecified abdominal pain; R19.00 Intra-abdominal and pelvic swelling, mass and lump, unspecified site; R05 Cough; Z90.710 Acquired absence of both cervix and uterus
CPT/HCPCS: 36415; 71045; 74176; 80048; 81001; 85025; 99284